=== PATIENT | male | born 1985 | race Caucasian/White ===

== ENCOUNTER 2022-11-29 01:41 | Emergency (ER) | payer SELFPAY ==
[2022-11-29 01:50] VITALS: BP 148/116; PULSE 90; RESP 18; TEMP 36.8; O2SAT 96; BMI 29.2
--- NOTE | 2022-11-29 02:00 | W.ED.NAVMDI ---
HPI - Nausea/Vomiting/Diarrhea General: Chief complaint: Nausea/Vomiting/Diarrhea Stated complaint: Vomiting Time Seen by Provider: 11/29/22 01:43 Source: patient Mode of arrival: ambulatory Limitations: no limitations History of Present Illness: 37-year-old male states he has had nausea and vomiting over the last 5 to 6 days. He states he has had issues with this for months. He denies abdominal pain denies any fevers. He states he is taken Zofran with minimal relief. He does admit to smoking marijuana daily. Associated nausea: Yes Associated symtoms: Reports nausea; Denies chest pain, dysuria or headache(s) Review of Systems Const: Denies: fever(s), chills, body aches or change in appetite Eyes: Denies: blurry vision or eye discomfort ENMT: Denies: throat pain or dental pain Card: Denies: chest pain Resp: Denies: dyspnea GI: Reports: nausea and vomiting; Denies: abdominal pain or diarrhea : Denies: dysuria Musc: Denies: neck pain or back pain Skin/Breast: Denies: rash Neuro: Denies: headache(s) Physical Exam Const: COMMON NORMALS: no acute distress, patient oriented x3 and healthy appearing HENMT: COMMON NORMALS: normocephalic and atraumatic HEAD & SCALP: normocephalic and atraumatic Eye: COMMON NORMALS: conjunctivae normal CONJUNCTIVA: Yes conjunctivae normal Neck/C-Spine: COMMON NORMALS: full ROM and supple Chest: COMMONS NORMALS: normal inspection of the chest Resp: COMMON NORMALS: normal respiratory effort and No use of accessory muscles Cardio: COMMON NORMALS: regular rate, regular rhythm and No murmurs present (Cardio) RATE: regular rate RHYTHM: regular rhythm GI: COMMON NORMALS: Normal to inspection, nondistended, normoactive bowel sounds present, Soft to palpation, non-tender and no masses PALPATION: Yes Soft to palpation Extremity: COMMON NORMALS: normal to inspection and full ROM Neuro: COMMON NORMALS: patient oriented x3, moves all extremities and no focal motor deficits Psych: COMMON NORMALS: mental status grossly normal, Normal thought process present and cooperative THOUGHT PROCESS: Normal thought process present Skin: COMMON NORMALS: no rashes or lesions noted and no wounds GENERAL SKIN EXAM: no rashes or lesions noted Course Vital Signs: Vital signs: Vital Signs Temperature 98.2 F 11/29/22 01:50 Pulse Rate 84 11/29/22 03:40 Respiratory Rate 16 11/29/22 03:40 Blood Pressure 141/106 11/29/22 03:40 Pulse Oximetry 93 11/29/22 03:40 MDM - Nausea/Vomiting/Diarrhea Medical Decision Making Patient presents with vomiting could be cannabis induced hyperemesis abdominal exam is benign blood works normal he feels much improved after fluids and nausea medicine he is to follow-up his PCP and return if worsening he understands agrees to plan. Medical Records I reviewed the patient's medical records. Lab Data I reviewed the patient's lab results. 11/29/22 02:00 11/29/22 02:00 Laboratory Results WBC 9.75 10^3/uL (3.29-11.43) 11/29/22 02:00 RBC 5.67 10^6/uL (3.85-5.65) H 11/29/22 02:00 Hgb 17.10 g/dL (11.27-16.99) H 11/29/22 02:00 Hct 50.1 % (37-53) 11/29/22 02:00 MCV 88.4 fl (82-101) 11/29/22 02:00 MCH 30.2 pg (27-33) 11/29/22 02:00 MCHC 34.1 g/dL (30-55) 11/29/22 02:00 RDW 12.9 % (12.1-15.1) 11/29/22 02:00 Plt Count 319 10^3/cmm (157-399) 11/29/22 02:00 MPV 10.8 fL (7.4-10.4) H 11/29/22 02:00 Neut % (Auto) 67.4 % 11/29/22 02:00 Lymph % (Auto) 25.9 % 11/29/22 02:00 Schleicher % (Auto) 5.8 % 11/29/22 02:00 Eos % (Auto) 0.3 % 11/29/22 02:00 Baso % (Auto) 0.4 % 11/29/22 02:00 Neut # (Auto) 6.56 10^3/uL (1.8-7.7) 11/29/22 02:00 Lymph # (Auto) 2.5 10^3/uL (0.8-4.8) 11/29/22 02:00 Schleicher # (Auto) 0.6 10^3/uL (0.2-0.9) 11/29/22 02:00 Eos # (Auto) 0.0 10^3/uL (0.0-0.8) 11/29/22 02:00 Baso # (Auto) 0.0 10^3/uL (0.0-0.1) 11/29/22 02:00 Nucleated RBC % (auto) 0 % 11/29/22 02:00 Nucleated RBCs # 0.0 /100WBC 11/29/22 02:00 Sodium 140 mmol/L (136-145) 11/29/22 02:00 Potassium 3.6 mmol/L (3.5-5.1) 11/29/22 02:00 Chloride 100 mmol/L (98-107) 11/29/22 02:00 Carbon Dioxide 27 mmol/L (22-29) 11/29/22 02:00 Anion Gap 16.6 (5-19) 11/29/22 02:00 BUN 16 mg/dL (6-20) 11/29/22 02:00 Creatinine 0.9 mg/dL (0.7-1.2) 11/29/22 02:00 GFR Calculation 96.0 mL/min (90-130) 11/29/22 02:00 Glucose 116 mg/dL (65-115) H 11/29/22 02:00 Calculated Osmolality 292 mOsm/kg (285-295) 11/29/22 02:00 Calcium 9.6 mg/dL (8.5-10.5) 11/29/22 02:00 Total Bilirubin 1.3 mg/dL (0.15-1.2) H 11/29/22 02:00 AST 23 U/L (0-40) 11/29/22 02:00 ALT 35 U/L (0-41) 11/29/22 02:00 Alkaline Phosphatase 86 U/L (40-130) 11/29/22 02:00 Total Protein 7.4 g/dL (6.6-8.7) 11/29/22 02:00 Albumin 4.8 g/dL (3.5-5.2) 11/29/22 02:00 Globulin 2.6 g/dL (1.3-4.6) 11/29/22 02:00 Lipase 55 U/L (13-60) 11/29/22 02:00 No radiology studies performed this visit Discharge Plan Discharge Patient Disposition: Home Clinical Impression: Vomiting Condition: Stable Prescriptions: New ondansetron 4 mg tablet,disintegrating 4 mg PO Q6H PRN (Reason: nausea and vomiting) Qty: 14 0RF Discharge Orders: Discharge ED (Routine); Ordered 11/29/22 Ordered By: Ahsan Hoffman Discharge Diet: Advance as tolerated Discharge Activity: Resume usual activity Patient Instructions: Acute Nausea and Vomiting (ED) Coding Level of Care Code ED Academic Intern for P[facility] Herrera
[2022-11-29 02:10] LABS: Basophils % 0.4 %; Eosinophils % 0.3 %; Hematocrit 50.1 % (37-53); Lymphocytes # 2.5 10^3/uL (0.8-4.8); Lymphocytes % 25.9 %; Mean Corpuscular HGB Conc 34.1 g/dL (30-55); Mean Corpuscular Hemoglobin 30.2 pg (27-33); Mean Corpuscular Volume 88.4 fl (82-101); Mean Platelet Volume 10.8 fL (7.4-10.4); Monocytes # 0.6 10^3/uL (0.2-0.9); Monocytes % 5.8 %; Neutrophils # 6.56 10^3/uL (1.8-7.7); Neutrophils % 67.4 %; Nucleated Red Blood Cells % 0 %; Platelet Count 319 10^3/cmm (157-399); Red Blood Count 5.67 10^6/uL (3.85-5.65); Red Cell Distribution Width 12.9 % (12.1-15.1); White Blood Count 9.75 10^3/uL (3.29-11.43)
[2022-11-29] MEDS: metoclopramide 5 mg/mL SDV 2 mL 10 MG IVP (02:14)
[2022-11-29] MEDS: diphenhydrAMINE 50 mg/mL SDV 1mL IVP (02:14)
[2022-11-29] MEDS: sodium chloride 0.9% 1,000 ML 999 ML IV (02:15)
[2022-11-29 02:31] LABS: Alanine Aminotransferase 35 U/L (0-41); Albumin Level 4.8 g/dL (3.5-5.2); Alkaline Phosphatase 86 U/L (40-130); Blood Urea Nitrogen 16 mg/dL (6-20); Calcium 9.6 mg/dL (8.5-10.5); Carbon Dioxide 27 mmol/L (22-29); Chloride 100 mmol/L (98-107); Globulin 2.6 g/dL (1.3-4.6); Glucose 116 mg/dL (65-115); Lipase 55 U/L (13-60); Osmolality Calculated 292 mOsm/kg (285-295); Sodium 140 mmol/L (136-145); Total Bilirubin 1.3 mg/dL (0.15-1.2); Total Protein 7.4 g/dL (6.6-8.7)
[2022-11-29 02:32] LABS: Anion Gap 16.6 (5-19); Potassium 3.6 mmol/L (3.5-5.1)
[2022-11-29 02:33] LABS: Aspartate Amino Transferase 23 U/L (0-40)
[2022-11-29] MEDS: ondansetron 2 mg/ML SDV 2 mL 4 MG IVP (03:10)
[2022-11-29 03:40] VITALS: BP 141/106; PULSE 84; RESP 16; O2SAT 93
== END 2022-11-29 03:41 | disposition home or self-care (01) ==
PROVIDERS: Emergency Provider Emergency Medicine
DX: R11.11 Vomiting without nausea (principal)
CPT/HCPCS: 36415; 80053; 83690; 85025; 96361; 96374; 96375; 99284; J1200; J2405; J2765; J7030